=== PATIENT | male | born 1965 | race Asian ===

== ENCOUNTER 2019-10-02 06:05 | Day surgery (SDC) | payer OTHER ==
[~2019-10-02] VITALS: Ht 167.6 cm; Wt 74.8 kg
[2019-10-02] MEDS ORDERED: ONDANSETRON HCL 4 MG/2 ML VIAL IVP PRN (09:15)
[2019-10-02] MEDS ORDERED: HYDROmorphone 1 MG INJ. 1 MG/ML AMPUL IVP PRN (09:15)
[2019-10-02 11:18] VITALS: BP_SYST 129
== END 2019-10-02 13:00 | disposition home or self-care (01) ==
LOC: SMU 06:05 → SDS 06:05
PROVIDERS: ATTEND Otolaryngology
DX: J32.8 Other chronic sinusitis (principal); J33.0 Polyp of nasal cavity; J34.89 Other specified disorders of nose and nasal sinuses; D38.5 Neoplasm of uncertain behavior of other respiratory organs; E78.00 Pure hypercholesterolemia, unspecified; R09.82 Postnasal drip
CPT/HCPCS: 30140; 30520; 31255; 31256; 31296; 88305; 88311; C1726; J7120